=== PATIENT | female | born 1990 | race Caucasian/White ===

== ENCOUNTER 2021-10-31 23:40 | Emergency (ER) | payer SELFPAY ==
[2021-11-01] MEDS ORDERED: Lidocaine 1%/Epinephrine 1:100K 10 ML VIAL ONE (00:01)
[2021-11-01] MEDS ORDERED: Boostrix 0.5 ML (Tdap) VIAL ONE (00:16)
[2021-11-01] MEDS ORDERED: Bacitracin 1 PK ONE (00:35)
== END 2021-11-01 00:48 | disposition home or self-care (01) ==
LOC: MADERS 23:40
DX: S91.322A Laceration with foreign body, left foot, initial encounter (principal); W22.8XXA Striking against or struck by other objects, initial encounter; Z23 Encounter for immunization
CPT/HCPCS: 12002; 28190; 90471; 90715